=== PATIENT | female | born 1980 | race Caucasian/White ===

== ENCOUNTER 2020-08-19 11:11 | Emergency (ER) | payer OTHER ==
[2020-08-19 11:25] VITALS: BP 120/62; PULSE 70; TEMP 98; BMI 24.4
[2020-08-19] MEDS ORDERED: ACETAMINOPHEN 500 MG TABLET (FP) PO ONE (11:39)
--- NOTE | 2020-08-19 11:49 | PDOC ---
History of Present Illness - General Chief Complaint: Pain Stated Complaint: BACK PAIN Time Seen by Provider: 08/19/20 11:20 History Source: Patient - History of Present Illness Occurred: reports: other Severity: reports: moderate Pain Location: reports: back Past History - Medical History Allergies/Adverse Reactions: Allergies Allergy/AdvReac Type Severity Reaction Status Date / Time No Known Allergies Allergy Verified 08/19/20 11:18 Home Medications: Ambulatory Orders Cyclobenzaprine HCl [Flexeril 10 mg] 10 mg PO HS #7 tablet 08/19/20 Naproxen 500 mg PO BID #14 tablet 08/19/20 COPD: No - Reproductive History Is Patient Now?: No - Psycho-Social/Smoking History Smoking History: Never smoked Review of Systems - Review of Systems Constitutional: No: Chills, Fever ABD/GI: No: Nausea, Vomiting, Abdominal cramping : No: Dysuria, Flank Pain Neurological: No: Numbness, Tingling, Weakness *Physical Exam - Vital Signs Last Vital Signs Temp Pulse Resp BP Pulse Ox 98 F 70 18 120/62 08/19/20 11:14 08/19/20 11:14 08/19/20 11:14 08/19/20 11:14 - Physical Exam General Appearance: Yes: Appropriately Dressed, Mild Distress. No: Apparent Distress HEENT: positive: Normal Voice Neck: positive: Supple Respiratory/Chest: negative: Respiratory Distress Gastrointestinal/Abdominal: positive: Soft. negative: Tender Musculoskeletal: positive: Vertebral Tenderness (to mid lower pain, reports pain w/ forward bending). negative: CVA Tenderness, CVA Tenderness (L) Integumentary: positive: Dry, Warm Neurologic: positive: Fully Oriented, Alert, Normal Mood/Affect, Motor Strength 5/5 ED Treatment Course - Medications Given in the ED: ED Medications Discontinued Medications Generic Name Dose Route Start Last Admin Trade Name Freq PRN Reason Stop Dose Admin Acetaminophen 1,000 mg 08/19/20 11:39 08/19/20 11:39 Tylenol - PO 08/19/20 11:40 1,000 mg ONCE ONE Administration Medical Decision Making - Medical Decision Making 08/19/20 11:44 40-year-old female no significant history here with non-radiating, achy, intermittent lower back pain x 4 days that started shortly after doing a new exercise regimen. Pain worse with movement. Taken Motrin with some relief. No sensory changes or neuro symptoms. No acute symptoms, nausea, vomiting, fever or chills see exam M/l lower back strain No red flags on exam -Dc w/ pain control and rest -PMD f/u Discharge - Discharge Information Problems reviewed: Yes Clinical Impression/Diagnosis: Back strain Qualifiers: Encounter type: initial encounter Qualified Code(s): S39.012A - Strain of muscle, fascia and tendon of lower back, initial encounter Condition: Improved Disposition: HOME - Additional Discharge Information Prescriptions: Cyclobenzaprine HCl [Flexeril 10 mg] 10 mg PO HS #7 tablet Naproxen 500 mg PO BID #14 tablet - Follow up/Referral - Patient Discharge Instructions Patient Printed Discharge Instructions: DI for Low Back Pain Additional Instructions: Lo ms probable es que tenga blanca tensin en la [place]da [place] los medicamentos segn las indicaciones y descanse Si el dolor persiste despus de 2 semanas, keshia un seguimiento con freed PMD. Print Language: [place] - Post Discharge Activity
== END 2020-08-19 11:45 | disposition home or self-care (01) ==
LOC: JERFT 11:11
DX: S39.012A Strain of muscle, fascia and tendon of lower back, initial encounter (principal)
CPT/HCPCS: 99283-25

== ENCOUNTER 2021-03-10 12:33 | Emergency (ER) | payer OTHER ==
[2021-03-10 12:39] VITALS: BP 120/77; PULSE 73; TEMP 97; BMI 27.3
[2021-03-10] MEDS ORDERED: KETOROLAC TROMETHAMINE 60 MG/2 ML VIAL IM ONE (12:57)
[2021-03-10] MEDS ORDERED: KETOROLAC TROMETHAMINE 30 MG/1 ML VIAL ONE (12:59)
[2021-03-10] MEDS ORDERED: KETOROLAC TROMETHAMINE 60 MG/2 ML VIAL ONE (13:01)
== END 2021-03-10 13:41 | disposition home or self-care (01) ==
LOC: JERFT 12:33
PROC: 3E0233Z Introduction of Anti-inflammatory into Muscle, Percutaneous Approach (ICD-10-PCS; principal; 2021-03-10)
DX: K08.89 Other specified disorders of teeth and supporting structures (principal)
CPT/HCPCS: 99284-25